=== PATIENT | female | born 1990 | race Caucasian/White ===

== ENCOUNTER 2016-10-10 22:29 | Emergency (ER) | payer SELFPAY ==
[2016-10-10 22:35] VITALS: BP 163/88
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
== END 2016-10-10 23:05 | disposition home or self-care (01) ==
LOC: ED 22:29
DX: S50.10XA Contusion of unspecified forearm, initial encounter (principal); X58.XXXA Exposure to other specified factors, initial encounter; Y93.9 Activity, unspecified; Y99.9 Unspecified external cause status
CPT/HCPCS: 99283